=== PATIENT | male | born 1985 | race Caucasian/White ===

== ENCOUNTER → 2017-12-16 | Outpatient (CLI) | payer OTHER ==
--- NOTE | 2017-12-16 12:50 | RAD ---
CT MAXILLOFACIAL WO CONTRAST Indication: Chronic sinusitis Technique: Noncontrast CT imaging was performed of the maxillofacial region, multiplanar reconstruction images submitted. One or more of the following individualized dose reduction techniques were utilized for this examination: 1. Automated exposure control 2. Adjustment of the mA and/or kV according to patient size 3. Use of iterative reconstruction technique. Contrast: None Comparison: None Findings: There are no air-fluid levels of the paranasal sinuses. There is patchy very minimal anterior ethmoid air cell mucosal thickening. There is tiny probable mucous retention cyst superior left maxillary sinus 0.3 cm. Otherwise the paranasal sinuses are aerated. Ostiomeatal units are patent bilaterally. IMPRESSION: 1. There are no air-fluid levels. There is patchy minimal anterior ethmoid air cell mucosal thickening, also tiny probable mucus retention cyst superior left maxillary sinus. Electronically signed by: Karthik Ricardo MD (12/16/2017 12:47 PM) [id number]
== END | disposition home or self-care (01) ==
LOC: CT 09:42
PROVIDERS: ATTEND Otolaryngology
DX: J32.0 Chronic maxillary sinusitis (principal)
CPT/HCPCS: 70486